=== PATIENT | male | born 1985 | race Caucasian/White ===

== ENCOUNTER 2017-08-26 11:32 | Emergency (ER) | payer MEDICAID, OTHER ==
[~2017-08-26] VITALS: Ht 167.6 cm; Wt 80.8 kg
[2017-08-26 11:38] VITALS: Ht 167.6 cm; Wt 80.8 kg
[2017-08-26] MEDS ORDERED: LIDOCAINE 1%/EPI 30 ML INJ INJ STA (12:53)
[2017-08-26] MEDS ORDERED: HYDROCODONE/APAP (5/325) TAB PO STA (12:53)
[2017-08-26] MEDS ORDERED: CEPHALEXIN 500 MG CAP PO STA (14:24)
[2017-08-26] MEDS ORDERED: CEPH-443 PO (14:26)
--- NOTE | 2017-08-26 14:50 | ERD ---
ER Documentation Chief Complaint Chief Complaint Pt presents with LAC to upper lip, had tetanus 2 years ago. HPI 31 year old male presents to the emergency dept with a lip laceration from hitting a tree an hour prior to being seen. Patient denies head injury or LOC. Tetanus updated 2 years ago. ROS All systems reviewed and are negative except as per history of present illness. Medications Home Meds Active Scripts Cephalexin* (Keflex*) 500 Mg Capsule, 500 MG PO QID for 7 Days, CAP Prov:MAGDALENA MABRY PA-C 08/26/17 Allergies Allergies: Coded Allergies: No Known Allergy (Unverified , 08/26/17) PMhx/Soc Medical and Surgical Hx: pt denies Medical Hx, pt denies Surgical Hx Physical Exam Vitals Physical Exam Const: NAD Head: Atraumatic Eyes: Normal Conjunctiva ENT: Normal External Ears, Nose and Mouth. Neck: Full range of motion..~ No meningismus. Resp: Clear to auscultation bilaterally Cardio: Regular rate and rhythm, no murmurs Abd: Soft, non tender, non distended. Normal bowel sounds Skin: 5cm buccal mucosal lip laceration to the josefa border Back: No midline or flank tenderness Ext: No cyanosis, or edema Neur: Awake and alert Psych: Normal Mood and Affect Results 24 hrs Current Medications Medications (Trade) Dose Ordered Sig/[place] Route PRN Reason Start Time Stop Time Status Last Admin Dose Admin Lidocaine/ Epinephrine (Xylocaine 1%/ Epi (Pf)) 30 ml ONCE STAT INJ 08/26/17 12:53 08/26/17 12:55 DC Acetaminophen/ Hydrocodone Bitart (Zoe (5/325)) 2 tab ONCE STAT PO 08/26/17 12:53 08/26/17 12:55 DC 08/26/17 13:08 Cephalexin (Keflex) 500 mg ONCE STAT PO 08/26/17 14:24 08/26/17 14:26 DC 08/26/17 14:31 Procedures/MDM 31 year old male patient presents to the ER with a deeplaceration on upper lip that does not affect the gum line or teeth. My clinical suspicion for fracture, nerve/tendon/arterial injury, foreign body is low due to physicial examination. Patient updated on TD 2 years ago. Patient prepared for wound closure. Procedure below. hemodynamically stable and neurovascularly intact pre and post treatment. Prescription was given. Discussed two day wpund check. Discussed to return to the ER for any signs of infection or if condition worsens. Patient expressed agreement and understanding of the plan. PROCEDURE NOTE: Consent was obtained. Patient was positioned appropriately. Copious amount of normal saline was used for irrigation. Wound was cleansed with betaiodine. Approximately 6]cc of lidocaine with epinephrine was used as a local anesthetic. Patient was sterile draped with wound exposed. Wound was closed with good approximation with 6 x 5-0 vicryl sutures. Procedure tolerated without complications. Wound dressed with bacitracin and sterile guaze. Departure Diagnosis: Primary Impression: Lip laceration Condition: Stable Patient Instructions: Laceration, Lip/Mouth Additional Instructions: WOUND CHECK:CONSULTE A JAMISON MDICO EN 2 richardson para kaela JAMISON HERIDA. [place] toda la medicina dinora y lupe se le indic. Regrese a estas instalaciones si no se mejora lupe esperbamos o lupe le dijimos. MAGDALENA MABRY PA-C Aug 26, 2017 14:50
[2017-08-26 14:51] VITALS: BP 132/81; PULSE 77; RESP 18; TEMP 98.1
== END 2017-08-26 15:00 | disposition home or self-care (01) ==
LOC: FTE 11:32
DX: S01.511A Laceration without foreign body of lip, initial encounter (principal); W22.8XXA Striking against or struck by other objects, initial encounter; Y92.9 Unspecified place or not applicable
CPT/HCPCS: 12013; Z7502; Z7610